=== PATIENT | male | born 1995 | race Two or more races ===

== ENCOUNTER 2021-08-19 19:57 | Emergency (ER) | payer OTHER ==
[~2021-08-19] VITALS: Ht 180.3 cm; Wt 79.4 kg
== END 2021-08-19 20:39 | disposition home or self-care (01) ==
LOC: ER 19:57
DX: S91.011A Laceration without foreign body, right ankle, initial encounter (principal); W54.0XXA Bitten by dog, initial encounter; Y93.9 Activity, unspecified; Y92.9 Unspecified place or not applicable; Y99.9 Unspecified external cause status

== ENCOUNTER 2022-06-14 10:35 | Emergency (ER) | payer OTHER ==
[~2022-06-14] VITALS: Ht 177.8 cm; Wt 76.2 kg
== END 2022-06-14 13:49 | disposition home or self-care (01) ==
LOC: ER 10:35
DX: H60.8X2 Other otitis externa, left ear (principal)

== ENCOUNTER 2024-10-26 08:24 | Emergency (ER) | payer OTHER ==
[~2024-10-26] VITALS: Ht 180.3 cm; Wt 72.6 kg
[2024-10-26] MEDS ORDERED: ONDANSETRON HCL 2 MG/ML VIAL IV ONE (09:00)
[2024-10-26] MEDS ORDERED: ONDANSETRON HCL 2 MG/ML VIAL ONE (09:00)
[2024-10-26 09:44] LABS: HEMATOCRIT 39.3 % (39.0-48.0); HEMOGLOBIN 13.7 g/dL (13-16.00); MEAN CELL VOLUME 77.5 fL (80.0-100.00); MEAN CORPUSCULAR HGB CONC 34.8 g/dl (32.0-36.0); PLATELET COUNT 284 K/uL (150-450); RED BLOOD COUNT 5.08 M/uL (4.00-6.00)
[2024-10-26 10:34] LABS: ALBUMIN 4.4 gm/dL (3.4-5.0); BILIRUBIN TOTAL 0.6 mg/dL (0.3-1.2); CALCIUM 9.3 mg/dL (8.5-10.1); CREATININE SERUM 1.14 mg/dL (0.70-1.30); GFR 74.92; GLOBULINA 3.1 G/DL (2.4-3.5); POTASSIUM 4.23 mEq/L (3.5-5.1); TOTAL PROTEIN 7.5 gm/dL (6.4-8.2)
== END 2024-10-26 12:02 | disposition home or self-care (01) ==
LOC: ER 08:26
PROVIDERS: General Practice
DX: R55 Syncope and collapse (principal); S93.491A Sprain of other ligament of right ankle, initial encounter; W18.39XA Other fall on same level, initial encounter; Y93.89 Activity, other specified; Y92.89 Other specified places as the place of occurrence of the external cause
CPT/HCPCS: 36415; 73610; 93005; 96365; 99283; J2405